=== PATIENT | female | born 1950 | race Caucasian/White ===

== ENCOUNTER 2017-09-11 07:57 | Day surgery (SDC) | payer OTHER ==
[2017-09-11] MEDS ORDERED: Lactated Ringer's 500 ML IV ONE (09:28)
[2017-09-11 11:12] VITALS: PULSE 66; RESP 12; TEMP 96.8; O2SAT 100
[2017-09-11 11:17] VITALS: BP 98/57
== END 2017-09-11 12:15 | disposition home or self-care (01) ==
LOC: H.ENDO 07:57
PROVIDERS: ATTEND Internal Medicine Gastroenterology
DX: Z12.11 Encounter for screening for malignant neoplasm of colon (principal); K64.8 Other hemorrhoids; K57.30 Diverticulosis of large intestine without perforation or abscess without bleeding; K22.8 Other specified diseases of esophagus; K31.89 Other diseases of stomach and duodenum; K30 Functional dyspepsia
CPT/HCPCS: 43239; 45378; 88305; J2001; J2250; J2704; J7120